=== PATIENT | female | born 1970 | race Two or more races ===

== ENCOUNTER 2024-04-25 12:35 | Emergency (ER) | payer OTHER ==
[~2024-04-25] VITALS: Ht 154.9 cm; Wt 140.0 kg
[2024-04-25] MEDS: predniSONE 20 MG TAB PO ONE (13:28)
--- NOTE | 2024-04-25 13:31 | DVH ---
CHEST RADIOGRAPH Indication: sob Technique: Single frontal view of the chest was obtained COMPARISON: None FINDINGS: Lines and Tubes: None Lungs: Mild congestion Pleura: No effusion. No pneumothorax. Cardiomediastinal contours: Unremarkable Bones: Unremarkable IMPRESSION: Mild congestion
[2024-04-25] MEDS: ALBUTEROL SULF 2.5 MG/0.5ML(0.5%) NEB SOLN HHN ONE (13:43)
[2024-04-25] MEDS: IPRATROPIUM BROM 0.5 MG/2.5ML INH SOL HHN ONE (13:43)
--- NOTE | 2024-04-25 14:25 | ED.PDOC ---
History of Present Illness HPI Comments 53y F who presents to the ED for chief complaint of shortness of breath. Pt states she has been having shortness of breath with associated non-productive cough and body aches for the past 2 days. Pt states she has been having associated pain when taking deep breaths and states her pain has been getting progressively worse. Pt states she has history of asthma and has been taking her inhaler and nebulizer treatment but states it has not been helping. Pt states she has also been having difficulty falling asleep. Pt in the ED, noted to be short of breath. Pt otherwise denies any sick contacts. Pt denies any other symptoms at this time. 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 Family History Family History: Unknown Social History Smoker: Non-Smoker Alcohol: Denies ETOH Use Drugs: Denies Drug Use Lives In: Home Constitutional: reports: others (body aches); denies: chills, diaphoresis, fatigue, fever, malaise, sweats, weakness EENTM: denies: blurred vision, double vision, ear bleeding, ear discharge, ear drainage, ear pain, ear ringing, eye pain, eye redness, hearing loss, mouth pain, mouth swelling, nasal discharge, nose bleeding, nose congestion, nose pain, photophobia, tearing, throat pain, throat swelling, voice changes, others Respiratory: reports: cough, shortness of breath; denies: hemoptysis, orthopnea, SOB at rest, SOB with excertion, stridor, wheezing, others Cardiovascular: denies: chest pain, dizzy spells, diaphoresis, Dyspnea on exertion, edema, irregular heart beat, left arm pain, lightheadedness, palpitations, PND, syncope, others Gastrointestinal: denies: abdomen distended, abdominal pain, blood streaked bowels, constipated, diarrhea, dysphagia, difficulty swallowing, hematemesis, melena, nausea, poor appetite, poor fluid intake, rectal bleeding, rectal pain, vomiting, others Genitourinary: denies: abnormal vagina bleeding, burning, dyspareunia, dysuria, flank pain, frequency, hematuria, incontinence, pain, , vagina discharge, urgency, others Neurological: denies: dizziness, fainting, headache, left sided numbness, left sided weakness, numbness, paresthesia, pre-existing deficit, right sided numbness, right sided weakness, seizure, speech problems, tingling, tremors, weakness, others Musculoskeletal: denies: back pain, gout, joint pain, joint swelling, muscle pain, muscle stiffness, neck pain, others Integumetry: denies: bruises, change in color, change in hair/nails, dryness, laceration, lesions, lumps, rash, wounds, others Allergic/Immunocompromised: denies: Difficulty Healing, Frequent Infections, Hives, Itching, others Hematologic/Lymphatic: denies: anemia, blood clots, easy bleeding, easy bruising, swollen glands, others Endocrine: denies: excessive hunger, excessive sweating, excessive thirst, excessive urination, flushing, intolerance to cold, intolerance to heat, unexplained weight gain, unexplained weight loss, others Psychiatric: denies: anxiety, bipolar disorder, depression, hopeless, panic disorder, schizophrenia, sleepless, suicidal, others All Other Systems: Reviewed and Negative Physical Exam General Appearance: No Apparent Distress, Normal HEENT: Normal ENT Inspection, Pharynx Normal, TMs Normal Neck: Full Range of Motion, Non-Tender, Normal, Normal Inspection Respiratory: Chest Non-Tender, No Accessory Muscle Use, Other (Mild respiratory distress, scattered wheezing to bilateral lung delgado, no rhonchi or crackles) Cardiovascular: No Edema, No JVD, No Murmur, No Gallop, Normal Peripheral Pulses, Regular Rate/Rhythm Breast Exam: Deferred Gastrointestinal: No Organomegaly, Non Tender, No Pulsatile Mass, Normal Bowel Sounds, Soft Genitalia: Deferred Pelvic: Deferred Rectal: Deferred Extremities: No calf tenderness, Normal capillary refill, Normal inspection, Normal range of motion, Non-tender, No pedal edema Musculoskeletal : Apperance: Normal Neurologic: Alert, 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 Was a procedure done?: No Differential Dx Considerations may include: asthma exacerbation, influenza A and B, COVID, COPD, CHF, pneumonia, PE X-Ray, Labs, Meds, VS Vital Signs Date Time Temp Pulse Resp B/P (MAP) Pulse Ox O2 Delivery O2 Flow Rate FiO2 04/25/24 16:20 102.0 124 26 141/73 (95) 94 102.0 04/25/24 15:15 129 04/25/24 13:43 22 95 Room Air* 0 21 04/25/24 13:29 107 24 94 Room Air 04/25/24 13:29 107 24 178/93 (121) 94 04/25/24 13:04 100.6 110 28 166/60 (95) 97 Current Medications Medications (Trade) Dose Ordered Sig/Clare Route Start Time Stop Time Status Last Admin Prednisone 60 mg ONCE ONCE PO 04/25/24 13:15 04/25/24 13:16 DC 04/25/24 13:28 Albuterol (Ventolin Medneb) 20 mg ONCE ONCE HHN 04/25/24 13:15 04/25/24 13:16 DC 04/25/24 13:43 Ipratropium [place] (Atrovent Medneb) 1 mg ONCE ONCE N 04/25/24 13:15 04/25/24 13:16 DC 04/25/24 13:43 [place] [id number] Ph: [phone] DIAGNOSTIC IMAGING Diagnostic Imaging Report : [id number] Signed PATIENT: DANDRE NIXON ACCT: [id number] UNIT: [id number] : 1970 LOC: ER ROOM / BED: / AGE / SEX: 53 / F ADM STATUS: REG ER SERVICE 1307 ORDERING PHYSICIAN: LI MOORE MD PROCEDURE(s): CXR1 - CHEST XRAY 1 VIEW REASON: sob ORDER NUMBER(s): [id number], ACCESSION NUMBER(s): [id number] CHEST RADIOGRAPH Indication: sob Technique: Single frontal view of the chest was obtained COMPARISON: None FINDINGS: Lines and Tubes: None Lungs: Mild congestion Pleura: No effusion. No pneumothorax. Cardiomediastinal contours: Unremarkable Bones: Unremarkable IMPRESSION: Mild congestion ATED BY: NIC TRIPLETT MD DICTATED DATE/TIME: 04/25/241327 SIGNED BY: NIC TRIPLETT MD SIGNED DATE/TIME: 04/25/241327 CC: X-Ray, Labs, Meds, VS Comment 53-year-old female with a history of asthma here today with complaints of suspected asthma exacerbation. Vital signs stable, afebrile. Physical exam notable for diffuse wheezes and mild respiratory distress. Patient was given albuterol, ipratropium, and steroids with significant improvement in her symptoms. Patient was requesting to be discharged home afterwards. Patient also requested a prescription for Tessalon Perles as she states they were very well for her which I provided to her preferred pharmacy. I also provided the patient with a prescription for a steroid burst. I provided the patient was strict return precautions for worsening respiratory distress, fevers, p.o. intolerance, any other concerning symptoms. Patient expressed understanding. Doubt ACS, PE, pneumothorax, pneumonia. No chest pain at any time. Patient was discharged home with strict instructions to follow up with the primary care provider within 2-3 days for re-evaluation. The patient expressed understanding and was discharged home in stable condition ambulating with a steady gait with a ambulatory O2 saturation of 99% On room air. Images Reviewed?: Images reviewed and evaluated by me Time of 1ST Reevaluation: 13:35 Reevaluation 1ST: Unchanged Time of 2ND Reevaluation: 17:20 Reevaluation 2ND: Resolved Patient Education/Counseling: Diagnosis, Treatment, Prognosis, Need For Follow Up Family Education/Counseling: No Family Present Departure 1 Departure Time of Disposition: 17:53 Impression: Primary Impression: Asthma exacerbation Disposition: 01 HOME / SELF CARE / HOMELESS Condition: Stable e-Prescriptions Prednisone (Prednisone) 20 Mg Tab 40 MG PO DAILY for 4 Days, #8 TAB Prov: LI MOORE MD 04/25/24 Benzonatate (Benzonatate) 100 Mg Cap 100 MG PO Q8HP PRN for 5 Days, #15 CAP Prov: LI MOORE MD 04/25/24 Discharged With: Self Critical Care Note Critical Care Time?: No Stability Stability form required: No Heart Score Heart Score: Heart Score Response (Comments) Value History N/A 0 EKG N/A 0 Age N/A 0 Risk Factors N/A 0 Troponin N/A 0 Total 0 I personally scribed for ER ([email or web address]) on 04/25/24 at 14:51. Electronically submitted by Jennifer Manley ([facility]). LI MOORE MD Apr 25, 2024 14:25 ER Apr 25, 2024 14:51
[2024-04-25] MEDS ORDERED: BENZ100C97 PO (17:46)
[2024-04-25] MEDS ORDERED: PRED20TA2 PO (17:47)
[2024-04-25 18:04] VITALS: BP 139/76; PULSE 114; RESP 24; TEMP 99.8; O2SAT 99
--- NOTE | 2024-04-25 18:50 | ECG ---
[facility] Test Date: 2024-04-25 Test Time: 15:09:46 Pat Name: DANDRE NIXON Department: ED Room: Gender: F Backwinder: DONTE : 1970 Requested By: LI MOORE Order Number: [id number] Reading MD: Hari Morrissey Measurements Intervals [place] Rate: 129 P: 97 AL: 153 QRS: 38 QRSD: 88 T: 15 QT: 340 QTc: 499 Interpretive Statements Sinus tachycardia Nonspecific repol abnormality, lateral leads Electronically Signed On 04-26-2024 10:25:40 PST by Hari Morrissey Please click the below link to view image of tracing.
== END 2024-04-25 18:06 | disposition home or self-care (01) ==
LOC: ER 12:35
DX: J45.909 Unspecified asthma, uncomplicated (principal)
CPT/HCPCS: 71045; 93005; 94644; 99285; J7512

== ENCOUNTER 2025-01-01 11:39 | Emergency (ER) | payer OTHER ==
[~2025-01-01] VITALS: Ht 157.5 cm; Wt 127.8 kg
[~2025-01-01 11:39] MED LIST: BENZ100C97 PO; PRED20TA2 PO
[2025-01-01 15:20] VITALS: TEMP 97.7; O2SAT 100
[2025-01-01 17:59] VITALS: BP 155/85; PULSE 88; RESP 19
[2025-01-01] MEDS ORDERED: HYDR25SU21 PR (18:05)
--- NOTE | 2025-01-01 18:11 | ED.PDOC ---
History of Present Illness HPI Comments 54-year-old female who comes with chief complaint of hemorrhoids. The patient states that she was diagnosed with hemorrhoids and diagnosed over the past 2 weeks. The patient has been having some bleeding since Tuesday. The patient is also having some rectal pain. The patient notes no other complaints at this time. The patient does have a history of asthma. The patient comes into the emergency department with the family. Chief Complaint: Rectal Pain Time Seen by MD: 12:12 Primary Care Provider: LUCIEN Reviewed Notes: Nurses Notes, Medications, Allergies (No allergies to medications) Allergies: Coded Allergies: NO KNOWN ALLERGIES (Unverified , 04/25/24) Home Meds Active Scripts Hydrocortisone Acetate (Anusol-Hc) 25 Mg Sup, 1 SUPP SD BID, #14 SUPP Prov:KATHIA STEEL MD 01/01/25 Benzonatate (Benzonatate) 100 Mg Cap, 100 MG PO Q8HP PRN for 5 Days, #15 CAP Prov:LI MOORE MD 04/25/24 Prednisone (Prednisone) 20 Mg Tab, 40 MG PO DAILY for 4 Days, #8 MG Prov:LI MOORE MD 04/25/24 Prednisone (Prednisone) 20 Mg Tab, 40 MG PO DAILY for 4 Days, #8 TAB Prov:LI MOORE MD 04/25/24 Benzonatate (Benzonatate) 100 Mg Cap, 100 MG PO Q8HP PRN for 5 Days, #15 CAP Prov:LI MOORE MD 04/25/24 Information Source: Patient Mode of Arrival: Ambulatory Severity: Moderate Timing: Weeks Duration: Since onset Prehospital treatment: None Associated signs and symptoms Rectal pain with some bleeding Past Medical History PAST MEDICAL HISTORY: Asthma 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 Family History Family History: Family hx of DM, Family hx of Cancer, Family hx of HTN, Family hx of Kidney veronika Social History Smoker: Non-Smoker Alcohol: Denies ETOH Use Drugs: Denies Drug Use Lives In: Home Constitutional: denies: chills, diaphoresis, fatigue, fever, malaise, sweats, weakness, others EENTM: denies: blurred vision, double vision, ear bleeding, ear discharge, ear drainage, ear pain, ear ringing, eye pain, eye redness, hearing loss, mouth pain, mouth swelling, nasal discharge, nose bleeding, nose congestion, nose pain, photophobia, tearing, throat pain, throat swelling, voice changes, others Respiratory: denies: cough, hemoptysis, orthopnea, SOB at rest, shortness of breath, SOB with excertion, stridor, wheezing, others Cardiovascular: denies: chest pain, dizzy spells, diaphoresis, Dyspnea on exertion, edema, irregular heart beat, left arm pain, lightheadedness, palpitations, PND, syncope, others Gastrointestinal: reports: rectal bleeding, rectal pain; denies: abdomen dis tended, abdominal pain, blood streaked bowels, constipated, diarrhea, dysphagia, difficulty swallowing, hematemesis, melena, nausea, poor appetite, poor fluid intake, vomiting, others Genitourinary: denies: abnormal vagina bleeding, burning, dyspareunia, dysuria, flank pain, frequency, hematuria, incontinence, pain, , vagina discharge, urgency, others Neurological: denies: dizziness, fainting, headache, left sided numbness, left sided weakness, numbness, paresthesia, pre-existing deficit, right sided numbness, right sided weakness, seizure, speech problems, tingling, tremors, weakness, others Musculoskeletal: denies: back pain, gout, joint pain, joint swelling, muscle pain, muscle stiffness, neck pain, others Integumetry: denies: bruises, change in color, change in hair/nails, dryness, laceration, lesions, lumps, rash, wounds, others Allergic/Immunocompromised: denies: Difficulty Healing, Frequent Infections, Hives, Itching, others Hematologic/Lymphatic: denies: anemia, blood clots, easy bleeding, easy bruising, swollen glands, others Endocrine: denies: excessive hunger, excessive sweating, excessive thirst, excessive urination, flushing, intolerance to cold, intolerance to heat, unexplained weight gain, unexplained weight loss, others Psychiatric: denies: anxiety, bipolar disorder, depression, hopeless, panic disorder, schizophrenia, sleepless, suicidal, others Physical Exam General Appearance: No Apparent Distress HEENT: Normal ENT Inspection, Pharynx Normal, TMs Normal Neck: Full Range of Motion, Non-Tender, Normal, Normal Inspection Respiratory: Chest Non-Tender, Lungs Clear, No Accessory Muscle Use, No R espiratory Distress, Normal Breath Sounds Cardiovascular: No Edema, No JVD, No Murmur, No Gallop, Normal Peripheral Pulses, Regular Rate/Rhythm Breast Exam: Deferred Gastrointestinal: No Organomegaly, Non Tender, No Pulsatile Mass, Normal Bowel Sounds, Soft Genitalia: Deferred Pelvic: Deferred Rectal: Hemorrhoids Extremities: No calf tenderness, Normal capillary refill, Normal inspection, Normal range of motion, Non-tender, No pedal edema Musculoskeletal : Apperance: Normal Neurologic: 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 Was a procedure done?: No Differential Dx Considerations may include: Hemorrhoids, abdominal pain, generalized weakness X-Ray, Labs, Meds, VS Vital Signs Date Time Temp Pulse Resp B/P (MAP) Pulse Ox O2 Delivery O2 Flow Rate FiO2 01/01/25 17:59 88 19 155/85 (108) 01/01/25 15:20 97.7 88 19 159/98 100 97.7 The patient is being discharged him on the patient will return to the emergency department the condition worsens The patient understands and agrees with the management. At this time, the patient was given a prescription of Anusol Time of 1ST Reevaluation: 18:10 Reevaluation 1ST: Improved Patient Education/Counseling: Diagnosis, Treatment, Prognosis, Need For Follow Up Family Education/Counseling: No Family Present SEPSIS Sepsis Screen Date sepsis recognized/suspect: Jan 01, 2025 Time Sepsis recognized/suspect: 1524 Recent Procedure: No On Antibiotic Therapy: No Respiratory Rate >20: No Heart Rate >90: No Temp<36 C (96.8 F) or >38.3 C: No SBP <90 or MAP <65 mmHG: No New Acute Mental Status Change: No Is the patient on CPAP, BIPAP,: No Vital Signs Date Time Temp Pulse Resp B/P (MAP) Pulse Ox O2 Delivery O2 Flow Rate FiO2 01/01/25 17:59 88 19 155/85 (108) 01/01/25 15:20 97.7 88 19 159/98 100 97.7 Departure 1 Departure Time of Disposition: 18:10 Impression: Primary Impression: Internal hemorrhoids Disposition: 01 HOME / SELF CARE / HOMELESS Condition: Fair e-Prescriptions Hydrocortisone Acetate (Anusol-Hc) 25 Mg Sup 1 SUPP SD BID, #14 SUPP Prov: KATHIA STEEL MD 01/01/25 Discharged With: Self Critical Care Note Critical Care Time?: No Stability Stability form required: No Heart Score Heart Score: Heart Score Response (Comments) Value History N/A 0 EKG N/A 0 Age N/A 0 Risk Factors N/A 0 Troponin N/A 0 Total 0 KATHIA STEEL MD Jan 01, 2025 18:11
== END 2025-01-01 18:32 | disposition home or self-care (01) ==
LOC: ER 11:39
DX: K64.8 Other hemorrhoids (principal); J45.909 Unspecified asthma, uncomplicated; Z79.899 Other long term (current) drug therapy